=== PATIENT | male | born 1935 ===

== ENCOUNTER 2016-11-25 17:00 | Emergency (ER) | payer OTHER ==
--- NOTE | 2016-11-25 17:14 | PDOC ---
History of Present Illness - General History Source: Patient Exam Limitations: No Limitations - History of Present Illness Initial Comments: 11/25/16 17:29 The patient is an 81 year old male with past medical history of hypertension, diabetes, CAD, cardiac stents x3 (placed one month ago) s/p left TKR who presents to the ED with left knee pain secondary to a mechanical fall one week ago. The patient was in [place] visiting his family members when he fell onto his left knee. Since then, he has been experiencing left knee pain and difficulty ambulating. He has been taking ibuprofen to manage his pain, but the pain has not yet subsided. The patient denies any lower extremity edema or calf swelling. He denies any recent illness, fever, chills, nausea, vomiting, diarrhea, cough, shortness of breath or chest pain. <Isabella Duncan - Last Filed: 11/25/16 17:29> - General History Source: Patient, Family Exam Limitations: Language Barrier <Lissett Brewster - Last Filed: 11/25/16 18:01> - General Chief Complaint: Injury Stated Complaint: LEFT LOWER LEG PAIN, S/P FALL Time Seen by Provider: 11/25/16 17:02 Past History <Isabella Duncan - Last Filed: 11/25/16 17:29> <Lissett Brewster - Last Filed: 11/25/16 18:01> - Past Medical History Allergies/Adverse Reactions: Allergies Allergy/AdvReac Type Severity Reaction Status Date / Time No Known Allergies Allergy Verified 11/25/16 17:11 Home Medications: Ambulatory Orders Amlodipine Besylate [Norvasc -] 10 mg PO DAILY 11/25/16 Aspirin Coated [Ecotrin -] 81 mg PO DAILY 11/25/16 Atorvastatin Ca [Lipitor] 40 mg PO HS 11/25/16 Brimonidine Tartrate [Alphagan P] 1 drop OD DAILY 11/25/16 Dorzolamide HCl/Timolol Maleat [Cosopt Eye Drops] 1 drop OD DAILY 11/25/16 Hypromellose 0.5% Opth Soln [Artificial Tears] 1 drop OP BID 11/25/16 Insulin (Novolog 70/30) [Novolog Mix 70/30 Flexpen -] 14 units SQ HS 11/25/16 Insulin (Novolog 70/30) [Novolog Mix 70/30 Flexpen -] 24 units SQ DAILY Metoprolol Succinate [Toprol Xl -] 50 mg PO DAILY 11/25/16 Ticagrelor [Brilinta] 90 mg PO BID 11/25/16 Review of Systems - Review of Systems Able to Perform ROS?: Yes Comments:: 11/25/16 17:29 GENERAL/CONSTITUTIONAL: No fever or chills. No weakness. HEAD, EYES, EARS, NOSE AND THROAT: No change in vision. No ear pain or discharge. No sore throat. CARDIOVASCULAR: No chest pain or shortness of breath. RESPIRATORY: No cough, wheezing, or hemoptysis. GASTROINTESTINAL: No nausea, vomiting, diarrhea or constipation. GENITOURINARY: No dysuria, frequency, or change in urination. MUSCULOSKELETAL: Left knee and calf pain. No neck or back pain. SKIN: No rash NEUROLOGIC: No headache, vertigo, loss of consciousness, or change in strength/ sensation. ENDOCRINE: No increased thirst. No abnormal weight change. HEMATOLOGIC/LYMPHATIC: No anemia, easy bleeding, or history of blood clots. ALLERGIC/IMMUNOLOGIC: No hives or skin allergy. All Other Systems: Reviewed and Negative <Isabella Duncan - Last Filed: 11/25/16 17:29> *Physical Exam - Vital Signs Last Vital Signs Temp Pulse Resp BP Pulse Ox 97.5 F L 63 16 158/82 97 11/25/16 17:02 11/25/16 17:02 11/25/16 17:02 11/25/16 17:02 11/25/16 17:02 - Physical Exam Comments: 11/25/16 17:30 GENERAL: Awake, alert, and fully oriented, in no acute distress HEAD: No signs of trauma EYES: PERRLA, EOMI, sclera anicteric, conjunctiva clear ENT: Auricles normal inspection, hearing grossly normal, nares patent, oropharynx clear without exudates. Moist mucosa NECK: Normal ROM, supple, no lymphadenopathy, JVD, or masses LUNGS: Breath sounds equal, clear to auscultation bilaterally. No wheezes, and no crackles HEART: Regular rate and rhythm, normal S1 and S2, no murmurs, rubs or gallops ABDOMEN: Soft, nontender, normoactive bowel sounds. No guarding, no rebound. No masses EXTREMITIES: Normal range of motion, no edema. No clubbing or cyanosis. No cords, erythema, or tenderness NEUROLOGICAL: Cranial nerves II through XII grossly intact. Normal speech, normal gait SKIN: Left upper calf 2 cm scab with surrounding erythema Warm, Dry, normal turgor, no rashes. <Isabella Duncan - Last Filed: 11/25/16 17:29> Medical Decision Making - Medical Decision Making 11/25/16 17:13 A portion of this note was documented by scribe services under my direction. I have reviewed the details of the note, within reason, and agree with the documentation with the following case summary and management plan written by me. Nursing documentation reviewed and incorporated into medical decision making 11/25/16 17:54 This is an 81 yo M presenting to the ER with family due to left knee pain He is 3 years s/p left knee replacement He is s/p a fall 1 week ago Since then, he has had pain No limitations in range of motion No swelling He has a bruise on calf No swelling Pt brought to the ER to eval for fracture or hardware failure Xray appears normal I am not concerned for DVT at this time, no calf pain Pt has a palpable popliteal pulse and palpable DP No swelling notable in the popliteal fossa Will discharge to home Follow up with orthopedics 11/25/16 18:00 <Lissett Brewster - Last Filed: 11/25/16 18:01> *DC/Admit/Observation/Transfer - Attestations Scribe Attestion: 11/25/16 17:30 Documentation prepared by Isabella Duncan, acting as medical assembler for Lissett Brewster MD. <Isabella Duncan - Last Filed: 11/25/16 17:29> - Discharge Dispostion Admit: No <Lissett Brewster - Last Filed: 11/25/16 18:01> Diagnosis at time of Disposition: Knee injury Qualifiers: Encounter type: initial encounter Laterality: left Qualified Code(s): S89.92XA - Unspecified injury of left lower leg, initial encounter - Discharge Dispostion Disposition: HOME Condition at time of disposition: Good - Referrals Referrals: Randolph De León MD [Primary Care Provider] - - Patient Instructions Printed Discharge Instructions: DI for Knee Pain, DI for Knee Sprain Additional Instructions: Thank you for bringing Mr. Cannon in to the ER today His x ray appears to show no major injuries Please follow up with his media reconciliation specialist at [facility] within 1 week He may take tylenol for pain Return to the ER for any other concerns or complaints
[2016-11-25 17:27] VITALS: BP 158/82; PULSE 63; TEMP 97.5; BMI 25.1
== END 2016-11-25 18:05 | disposition home or self-care (01) ==
LOC: FER 17:00
DX: S89.92XA Unspecified injury of left lower leg, initial encounter (principal); W18.39XA Other fall on same level, initial encounter; Y93.89 Activity, other specified; Y92.9 Unspecified place or not applicable; I10 Essential (primary) hypertension; E11.9 Type 2 diabetes mellitus without complications; I25.10 Atherosclerotic heart disease of native coronary artery without angina pectoris; Z95.5 Presence of coronary angioplasty implant and graft; Z96.652 Presence of left artificial knee joint
CPT/HCPCS: 73562-TC-LT; 99282-25